=== PATIENT | male | born 1965 | race Caucasian/White ===

== ENCOUNTER 2022-01-24 16:16 | Outpatient (CLI) | payer OTHER, SELFPAY ==
--- NOTE | ~2022-01-24 | MR_ITS ---
MRI of the lumbar spine Clinical History: Back pain Technique: Axial T2-weighted images, and sagittal T1-weighted, T2-weighted, and T2 fat-sat images wer e acquired. Findings: There is no fracture or sublocation of the lumbar spine. Vertebral bodies maintain normal h eight and alignment. No suspicious bone marrow signal abnormality seen. At L1-L2, there is no significant disc bulge or herniation. No spinal canal stenosis or neural forami nal narrowing. At L2-L3, there is no disc bulge or herniation. No spinal canal stenosis or neural foraminal narrowin g. At L3-L4, there is no disc bulge or herniation. No spinal canal stenosis or definite neural foraminal narrowing. At L4-L5, there is no disc bulge or herniation. No spinal canal stenosis or neural foraminal narrowin g. At L5-S1, there is noted significant disc bulge or herniation. No spinal canal stenosis. There is mod erate right neural foraminal narrowing with mild facet arthropathy. Paravertebral soft tissues are unremarkable. Impression: Moderate right neural foraminal narrowing at L5-S1. Reviewed, dictated and finalized at location [] [employer] Impression: Moderate right neural foraminal narrowing at L5-S1.
== END 2022-01-24 16:17 | disposition home or self-care (01) ==
PROVIDERS: PCP Family Medicine; Visit Provider Physician Assistant
DX: M43.06 Spondylolysis, lumbar region (principal)
CPT/HCPCS: 72148

== ENCOUNTER 2023-12-04 16:04 | Outpatient (CLI) | payer OTHER, SELFPAY ==
--- NOTE | ~2023-12-04 | US_ITS ---
EXAM: ABDOMEN ULTRASOUND HISTORY: R17 - Unspecified jaundice COMPARISON: None FINDINGS: LIVER: The liver is increased in echogenicity. The main portal vein is patent demonstrating hepatopedal flow. GALLBLADDER: The gallbladder is hydropic measuring 12.4 cm in longitudinal dimension. Layering sludge is noted. BILE DUCTS: Significant intrahepatic biliary ductal dilatation is identified within the liver measuri ng up to 9 mm. Common bile duct is also dilated and measures 14mm. PANCREAS: Limited evaluation of the pancreas secondary to overlying bowel gas SPLEEN: The spleen is unremarkable in echogenicity and size measuring 11.6cm in longitudinal dimensio n. RIGHT KIDNEY: 12.7 cm. In length. No hydronephrosis or bulky renal calculi. LEFT KIDNEY: 11.8cm in length. No hydronephrosis or renal calculi. VASCULATURE : The abdominal aorta is nonaneurysmal. The IVC is patent. IMPRESSION: Markedly abnormal ultrasound examination of the abdomen, with significant intrahepatic biliary ductal dilatation, common bile duct dilatation and gallbladder hydrops. These findings taken together (rohan g with his presentation of jaundice) represent a malignancy until proven otherwise. Evaluation of the pancreas is limited by overlying bowel gas. These findings were discussed with Dr. Harris at 7:00 PM on 12/04/2023. Reviewed, dictated and finalized at location A. IMPRESSION: Markedly abnormal ultrasound examination of the abdomen, with significant intra hepatic biliary ductal dilatation, common bile duct dilatation and gallbladder hydrops. These findings taken together (along with his presentation of jaundice ) represent a malignancy until proven otherwise. Evaluation of the pancreas is limited by overlying bowel gas. These findings were discussed with Dr. Harris at 7:00 PM on 12/04/2023.
== END 2023-12-04 16:05 | disposition home or self-care (01) ==
PROVIDERS: PCP Family Medicine; Visit Provider Student in an Organized Health Care Education/Training Program
DX: R17 Unspecified jaundice (principal); L29.9 Pruritus, unspecified; R10.9 Unspecified abdominal pain; R19.5 Other fecal abnormalities; R74.8 Abnormal levels of other serum enzymes; R97.8 Other abnormal tumor markers
CPT/HCPCS: 76700